=== PATIENT | male | born 1960 | race Caucasian/White ===

== ENCOUNTER → 2025-03-13 | Day surgery (SDC) | payer MEDICARE, OTHER ==
[2025-03-05 09:32] LABS: BASOPHILS % 0.9 % (0.0-1.0); EOSINOPHILS % 3.5 % (0.0-6.0); LYMPHOCYTES % 23.9 % (18.0-39.1); MONOCYTES % 14.5 % (4.4-11.3); NEUTROPHILS % 57.0 % (38.7-80.0); RED CELL DISTRIBUTION WIDTH 13.0 % (11.7-14.4)
[~2025-03-13] MED LIST: ADDERALL 20 MG20 MG PO; CELEBREX50 MG PO; DEXMEDETOMIDINE HCL 2 ML ONE; HYOSCYAMINE SULFATE 0.5 MG/ML INJ ONE; LACTATED RINGER'S 1,000 ML ONE; LIDOCAINE HCL 2% LOCAL INJ 5 ML SDV VIAL INJ ONE; LISINOPRIL10 MG PO; PROPOFOL IV EMULSION 50 ML IV ONE; SIMVASTATIN20 MG PO; SODIUM CHLORIDE 0.9% 100 ML ONE
[2025-03-13 08:18] VITALS: TEMP 97.4
[2025-03-13 08:45] VITALS: BP 106/79; PULSE 57; RESP 16; O2SAT 96
== END | disposition home or self-care (01) ==
LOC: OR 05:58
PROVIDERS: ATTEND Internal Medicine Gastroenterology
DX: Z09 Encounter for follow-up examination after completed treatment for conditions other than malignant neoplasm (principal); D12.2 Benign neoplasm of ascending colon; D12.4 Benign neoplasm of descending colon; D12.5 Benign neoplasm of sigmoid colon; K57.30 Diverticulosis of large intestine without perforation or abscess without bleeding; K64.8 Other hemorrhoids; I10 Essential (primary) hypertension; E78.5 Hyperlipidemia, unspecified; R00.1 Bradycardia, unspecified; I45.10 Unspecified right bundle-branch block; Z01.810 Encounter for preprocedural cardiovascular examination; Z01.812 Encounter for preprocedural laboratory examination
CPT/HCPCS: 36415; 45378; 45385; 85025; 88305; 93005; J1980; J2003; J7050